=== PATIENT | male | born 1965 | race Caucasian/White ===

== ENCOUNTER 2016-12-26 21:56 | Emergency (ER) | payer OTHER ==
[~2016-12-26] VITALS: Ht 154.9 cm; Wt 109.0 kg
[~2016-12-26 21:56] MED LIST: ASPI81TA3 PO; ATOR10TA65 PO; CHOL200018 PO; GABA100C14 PO; GLIM1TAB2 PO; INSU100C SC; LANT3I SC; LISI10TA2 PO; METF500T4 PO
[2016-12-26 22:21] VITALS: Ht 154.9 cm; Wt 109.0 kg
[2016-12-27] MEDS ORDERED: morphine 4 MG/ML VIAL IM STA (01:12)
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
== END 2016-12-27 01:13 | disposition home or self-care (01) ==
LOC: FTE 21:56
DX: S49.92XS Unspecified injury of left shoulder and upper arm, sequela (principal); E11.9 Type 2 diabetes mellitus without complications; I10 Essential (primary) hypertension; X58.XXXS Exposure to other specified factors, sequela; Z79.4 Long term (current) use of insulin; Z79.82 Long term (current) use of aspirin; Z79.84 Long term (current) use of oral hypoglycemic drugs
CPT/HCPCS: 96372; J2270; Z7502